=== PATIENT | female | born 1990 ===

== ENCOUNTER 2021-02-17 14:08 | Inpatient (IN) | payer BC ==
[2021-02-17] MEDS ORDERED: Methylergonovine 0.2 MG/1 ML Amp IM PRN (14:29)
[2021-02-17] MEDS ORDERED: Terbutaline 1 MG/ML SDV SUBCUT PRN (14:29)
[2021-02-17] MEDS ORDERED: Misoprostol 200 MCG Tab PO PRN (14:29)
[2021-02-17] MEDS ORDERED: Butorphanol 1 MG/ML SDV IVPUSH PRN (14:29)
[2021-02-17] MEDS ORDERED: Sodium Chloride 0.9% 10 ML Syringe FLUSH PRN (14:29)
[2021-02-17] MEDS ORDERED: Lidocaine 1% 50 ML MDV INJECT PRN (14:29)
[2021-02-17] MEDS ORDERED: Sodium Chloride 0.9% 10 ML SDV IV PRN (14:29)
[2021-02-17] MEDS ORDERED: Carboprost Tromethamine 250 MCG/1 ML Amp IM PRN (14:29)
[2021-02-17] MEDS ORDERED: Sodium Chloride 0.9% 2.5 ML Syringe FLUSH PRN (14:29)
[2021-02-17] MEDS ORDERED: Water For Irrigation,Sterile 1,000 ML Container IRR PRN (14:29)
[2021-02-17] MEDS ORDERED: Tranexamic Acid 1,000 MG in Sodium Chloride 0.9% 100 ML IV PRN (14:29)
[2021-02-17] MEDS ORDERED: Nalbuphine 10 MG/1 ML Vial IVPUSH PRN (14:29)
[2021-02-17] MEDS ORDERED: Ondansetron 4 MG/2 ML SDV IVPUSH PRN (14:29)
[2021-02-17] MEDS ORDERED: Oxytocin/0.9 % Sodium Chloride 30 UNIT/500 ML BAG IV SCH ×2 (14:30)
[2021-02-17] MEDS: Lactated Ringers 1,000 ML IV SCH ×3 (16:15→22:09)
[2021-02-17] MEDS ORDERED: Ropivacaine HCl/PF 200 ML ONE (21:19)
[2021-02-17] MEDS ORDERED: Bupivacaine 0.25% 30 ML SDV ONE (21:20)
[2021-02-17] MEDS ORDERED: ePHEDrine 50 MG/ML SDV IVPUSH PRN (21:41)
--- NOTE | 2021-02-17 21:44 | PCM.PREANE ---
Preanesthetic Assessment - Anesthesia/Transfusion/Family Hx Anesthesia History: Prior Anesthesia Without Reaction Family History of Anesthesia Reaction: No - Review of Systems General: No Symptoms Pulmonary: No Symptoms Cardiovascular: No Symptoms Gastrointestinal: No Symptoms Neurological: No Symptoms Other: Reports: None - Physical Assessment Height: 5 ft 3.25 in Weight: 203 lb 12.8 oz ASA Class: 2 Mental Status: Alert & Oriented x3 Airway Class: Mallampati = 3 Dentition: Reports: Normal Dentition ROM/Head Extension: Full Lungs: Clear to Auscultation, Normal Respiratory Effort Cardiovascular: Regular Rate, Regular Rhythm - Lab Values: Laboratory Last Values WBC 6.81 K/uL (4.0-11.0) 02/17/21 14:55 RBC 3.91 M/uL (4.30-5.90) L 02/17/21 14:55 Hgb 11.0 g/dL (12.0-16.0) L 02/17/21 14:55 Hct 31.7 % (36.0-46.0) L 02/17/21 14:55 MCV 81.1 fL (80.0-98.0) 02/17/21 14:55 MCH 28.1 pg (27.0-32.0) 02/17/21 14:55 MCHC 34.7 g/dL (31.0-37.0) 02/17/21 14:55 RDW Std Deviation 41.2 fl (28.0-62.0) 02/17/21 14:55 RDW Coeff of Jeramy 14 % (11.0-15.0) 02/17/21 14:55 Plt Count 284 K/uL (150-400) 02/17/21 14:55 MPV 10.10 fL (7.40-12.00) 02/17/21 14:55 Nucleated RBC % 0.0 /100WBC 02/17/21 14:55 Nucleated RBCs # 0 K/uL 02/17/21 14:55 Blood Type O POSITIVE 02/17/21 14:55 Antibody Screen NEGATIVE 02/17/21 14:55 - Allergies Allergies/Adverse Reactions: Allergies Allergy/AdvReac Type Severity Reaction Status Date / Time No Known Allergies Allergy Verified 02/17/21 15:20 - Blood Blood Available: Yes Product(s) Available: PRBC, FFP, Platelets - Anesthesia Plan Pre-Op Medication Ordered: None - Acknowledgements Anesthesia Type Planned: Epidural Pt an Appropriate Candidate for the Planned Anesthesia: Yes Alternatives and Risks of Anesthesia Discussed w Pt/Guardian: Yes Pt/Guardian Understands and Agrees with Anesthesia Plan: Yes PreAnesthesia Questionnaire - Past Health History Medical/Surgical History: Denies Medical/Surgical History PARTS CLASSIFIER History: Reports: Musculoskeletal History: Reports: Fracture Other Musculoskeletal History: tailbone Psychiatric History: Reports: Anxiety, Depression - Infectious Disease History Infectious Disease History: Reports: Chicken Pox - Past Surgical History Musculoskeletal Surgical History: Reports: None - HOME MEDS Home Medications: Home Meds Escitalopram Oxalate 20 mg PO DAILY 02/17/21 [History] - CURRENT (IN HOUSE) MEDS Current Meds: Current Medications Butorphanol Tartrate (Butorphanol 1 Mg/Ml Sdv) 1 mg IVPUSH Q1H PRN PRN Reason: Pain (severe 7-10) Last Admin: 02/17/21 18:12 Dose: 1 mg Documented by: Carboprost Tromethamine (Carboprost Tromethamine 250 Mcg/1 Ml Amp) 250 mcg IM ASDIRECTED PRN PRN Reason: Post Hemorrhage Oxytocin/Sodium Chloride (Oxytocin 30 Unit In Ns 0.9% 500 Ml Premix) 30 unit in 500 mls @ 999 mls/hr IV TITRATE SHARRON Tranexamic Acid 1,000 mg/ (Sodium Chloride) 110 mls @ 660 mls/hr IV ONETIME PRN PRN Reason: Bleeding Oxytocin/Sodium Chloride (Oxytocin 30 Unit In Ns 0.9% 500 Ml Premix) 30 unit in 500 mls @ 2 mls/hr IV TITRATE SHARRON; Protocol Last Titration: 02/17/21 21:22 Dose: 6 munits/min, 6 mls/hr Documented by: Lactated Ringer's (Ringers, Lactated) 1,000 mls @ 150 mls/hr IV ASDIRECTED SHARRON Last Admin: 02/17/21 19:11 Dose: 150 mls/hr Documented by: Lidocaine HCl (Lidocaine 1% 50 Ml Mdv) 50 ml INJECT ONETIME PRN PRN Reason: Laceration repair Methylergonovine Maleate (Methylergonovine 0.2 Mg/1 Ml Amp) 0.2 mg IM ASDIRECTED PRN PRN Reason: Post Hemorrhage Misoprostol (Misoprostol 200 Mcg Tab) 200 mcg PO ONETIME PRN PRN Reason: Post Hemorrhage Nalbuphine HCl (Nalbuphine 10 Mg/1 Ml Vial) 10 mg IVPUSH Q1H PRN PRN Reason: Pain (severe 7-10) Ondansetron HCl (Ondansetron 4 Mg/2 Ml Sdv) 4 mg IVPUSH Q4H PRN PRN Reason: Nausea/Vomiting Sodium Chloride (Sodium Chloride 0.9% 10 Ml Syringe) 10 ml FLUSH ASDIRECTED PRN PRN Reason: Keep Vein Open Sodium Chloride (Sodium Chloride 0.9% 2.5 Ml Syringe) 2.5 ml FLUSH ASDIRECTED PRN PRN Reason: Keep Vein Open Sodium Chloride (Sodium Chloride 0.9% 10 Ml Sdv) 10 ml IV ASDIRECTED PRN PRN Reason: IV Use Sterile Water (Water For Irrigation,Sterile 1,000 Ml Container) 1,000 ml IRR ASDIRECTED PRN PRN Reason: delivery Terbutaline Sulfate (Terbutaline 1 Mg/Ml Sdv) 0.25 mg SUBCUT ASDIRECTED PRN PRN Reason: Tacysystole Discontinued Medications Bupivacaine HCl (Bupivacaine 0.25% 30 Ml Sdv) Confirm Administered Dose 30 ml .ROUTE .[employer]-MED ONE Stop: 02/17/21 21:21 Ropivacaine (Naropin 0.2%) Confirm Administered Dose 200 mls @ as directed .ROUTE .[employer]-MED ONE Stop: 02/17/21 21:20 - Pre-Procedure Checklist Attending Provider Aware: Yes Chart Reviewed: Yes Consent Signed: Yes Labs Reviewed: Yes VS/FHR Reviewed: Yes Patient Identification Confirmation Method: Reports: Verbal Patient Pt an Appropriate Candidate for the Planned Anesthesia: Yes Alternatives and Risks of Anesthesia Discussed w Pt/Guardian: Yes - Procedure Procedure Start Date: 02/17/21 Procedure Start Time: 21:[address]: Reports: Blood Pressure, Heart Rate, SPO2 Functional IV: Yes Safety Measures: Reports: Patient Identified, Procedure Verified, Site Verified, Procedure Time Out Patient Position: Reports: Sitting Prep: Reports: Betadine x3, Sterile Drape Local Anesthetic: Reports: Intradermal Wheal w Lidocaine 1% Regional Placement Level: Reports: L3-4 Needle: Reports: 17 g Touhy Approach: Reports: Midline Technique: Reports: KARLA Plastic Syringe Parasthesia: Reports: None Fluid Obtained: Reports: None Test Dose Time: 21:29 Test Dose Medication: Reports: Lidocaine 1.5% w Epinephrine 1:200,000 Test Dose Response: Reports: Negative Loading Dose Time: 21:28 Loading Dose Medication: bupivicaine 0.25% 10cc Loading Dose Patient Position: sitting Continuous Infusion Start Time: 21:30 Continuous Infusion Medication: ropivicaine 0.2% Continuous Infusion Rate: 16 Continuous Infusion PCS Bolus Option: 4 Continuous Infusion Lockout Dose (cc/hr): 32 Patient Position Post Placement: Reports: Supline/CHEO VS and FHR Monitored in Unit Post Placement: Yes Procedure End Date: 02/17/21 Procedure End Time: 22:24
--- NOTE | 2021-02-17 21:44 | PCM.POSTAN ---
POST ANESTHESIA ASSESSMENT - MENTAL STATUS Mental Status: Alert, Oriented - RESPIRATORY Respiratory Status: Respiratory Rate WNL, Airway Patent, O2 Saturation Stable - CARDIOVASCULAR CV Status: Pulse Rate WNL, Blood Pressure Stable - GASTROINTESTINAL GI Status: No Symptoms - POST OP HYDRATION Hydration Status: Adequate & Stable
[2021-02-18] MEDS ORDERED: oxyCODONE 5 MG Tab PO PRN (00:58)
[2021-02-18] MEDS ORDERED: Ibuprofen 400 MG Tab PO PRN (00:58)
[2021-02-18] MEDS ORDERED: Benzocaine/Menthol 20%-0.5% Spray 78 GM Cannister TOP PRN (00:58)
[2021-02-18] MEDS ORDERED: Lanolin 100% Cream 7 GM Tube TOP PRN (00:58)
[2021-02-18] MEDS ORDERED: Witch Hazel Medicated Pads 40/Jar TOP PRN (00:58)
[2021-02-18] MEDS ORDERED: Acetaminophen 500 MG Tab PO PRN (00:58)
[2021-02-18] MEDS ORDERED: Bisacodyl 10 MG Supp RECTAL PRN (00:58)
--- NOTE | 2021-02-18 01:14 | PCM.DEL ---
L & D Note - General Info Date of Service: 02/18/21 Mother's Due Date: 02/22/21 - Delivery Note Labor: Augmented by Oxytocin Cervical Ripening Method: Oxytocin Delivery Outcome: Livebirth Delivery Method: Spontaneous Vaginal Delivery-Single Presentation: Left Occiput Anterior (ARNOLDO) Nuchal Cord: None Anesthesia Type: Epidural Episiotomy Type: None Laceration: None Placenta: Spontaneous Cord: 3 Vessels Estimated Blood Loss: 300 Resuscitation Needed: No Score 1 min: 7 Score 5 min: 9 Delivery Comments (Free Text/Narrative):: Live female delivered at 1157pm , 7/9 weight 3020g - General Info Date of Service: 02/18/21 - Patient Data Weight - Most Recent: 92.442 kg I&O - Last 24 Hours: Intake & Output 02/17/21 02/17/21 02/18/21 14:59 22:59 06:59 Output Total 125 Balance -125 Lab Results Last 24 Hours: Laboratory Results - last 24 hr 02/17/21 02/17/21 Range/Units 14:55 14:55 WBC 6.81 (4.0-11.0) K/uL RBC 3.91 L (4.30-5.90) M/uL Hgb 11.0 L (12.0-16.0) g/dL Hct 31.7 L (36.0-46.0) % MCV 81.1 (80.0-98.0) fL MCH 28.1 (27.0-32.0) pg MCHC 34.7 (31.0-37.0) g/dL RDW Std Deviation 41.2 (28.0-62.0) fl RDW Coeff of Jeramy 14 (11.0-15.0) % Plt Count 284 (150-400) K/uL MPV 10.10 (7.40-12.00) fL Nucleated RBC % 0.0 /100WBC Nucleated RBCs # 0 K/uL Blood Type O POSITIVE Antibody Screen NEGATIVE Med Orders - Current: Current Medications Acetaminophen (Acetaminophen 500 Mg Tab) 500 mg PO Q4H PRN PRN Reason: Pain (mild 1-3) Acetaminophen (Acetaminophen 500 Mg Tab) 1,000 mg PO Q4H PRN PRN Reason: Pain (mild 1-3) Benzocaine/Menthol (Benzocaine/Menthol 20%-0.5% Scheller 78 Gm Cannister) 78 gm TOP ASDIRECTED PRN PRN Reason: Perineal Comfort Measure Bisacodyl (Bisacodyl 10 Mg Supp) 10 mg RECTAL ONETIME PRN PRN Reason: Constipation Butorphanol Tartrate (Butorphanol 1 Mg/Ml Sdv) 1 mg IVPUSH Q1H PRN PRN Reason: Pain (severe 7-10) Last Admin: 02/17/21 18:12 Dose: 1 mg Documented by: Carboprost Tromethamine (Carboprost Tromethamine 250 Mcg/1 Ml Amp) 250 mcg IM ASDIRECTED PRN PRN Reason: Post Hemorrhage Docusate Sodium (Docusate Sodium 100 Mg Cap) 100 mg PO Q12H PRN PRN Reason: Constipation Emollient Ointment (Lanolin 100% Cream 7 Gm Tube) 0 gm TOP ASDIRECTED PRN PRN Reason: Sore Nipples Ephedrine Sulfate (Ephedrine 50 Mg/Ml Sdv) 10 mg IVPUSH Q5M PRN PRN Reason: Hypotension Escitalopram Oxalate (Escitalopram 10 Mg Tab) 20 mg PO DAILY SHARRON Oxytocin/Sodium Chloride (Oxytocin 30 Unit In Ns 0.9% 500 Ml Premix) 30 unit in 500 mls @ 999 mls/hr IV TITRATE SHARRON Tranexamic Acid 1,000 mg/ (Sodium Chloride) 110 mls @ 660 mls/hr IV ONETIME PRN PRN Reason: Bleeding Oxytocin/Sodium Chloride (Oxytocin 30 Unit In Ns 0.9% 500 Ml Premix) 30 unit in 500 mls @ 2 mls/hr IV TITRATE SHARRON; Protocol Last Titration: 02/17/21 23:58 Dose: 500 munits/min, 500 mls/hr Documented by: Lactated Ringer's (Ringers, Lactated) 1,000 mls @ 150 mls/hr IV ASDIRECTED SHARRON Last Admin: 02/17/21 22:09 Dose: 150 mls/hr Documented by: Ibuprofen (Ibuprofen 400 Mg Tab) 400 mg PO Q4H PRN PRN Reason: Pain (mild 1-3) Ibuprofen (Ibuprofen 800 Mg Tab) 800 mg PO Q6H PRN PRN Reason: Cramping Lidocaine HCl (Lidocaine 1% 50 Ml Mdv) 50 ml INJECT ONETIME PRN PRN Reason: Laceration repair Methylergonovine Maleate (Methylergonovine 0.2 Mg/1 Ml Amp) 0.2 mg IM ASDIRECTED PRN PRN Reason: Post Hemorrhage Misoprostol (Misoprostol 200 Mcg Tab) 200 mcg PO ONETIME PRN PRN Reason: Post Hemorrhage Nalbuphine HCl (Nalbuphine 10 Mg/1 Ml Vial) 10 mg IVPUSH Q1H PRN PRN Reason: Pain (severe 7-10) Ondansetron HCl (Ondansetron 4 Mg/2 Ml Sdv) 4 mg IVPUSH Q4H PRN PRN Reason: Nausea/Vomiting Last Admin: 02/17/21 22:04 Dose: 4 mg Documented by: Oxycodone HCl (Oxycodone 5 Mg Tab) 5 mg PO Q2H PRN PRN Reason: Pain (severe 7-10) Sodium Chloride (Sodium Chloride 0.9% 10 Ml Syringe) 10 ml FLUSH ASDIRECTED PRN PRN Reason: Keep Vein Open Sodium Chloride (Sodium Chloride 0.9% 2.5 Ml Syringe) 2.5 ml FLUSH ASDIRECTED PRN PRN Reason: Keep Vein Open Sodium Chloride (Sodium Chloride 0.9% 10 Ml Sdv) 10 ml IV ASDIRECTED PRN PRN Reason: IV Use Sterile Water (Water For Irrigation,Sterile 1,000 Ml Container) 1,000 ml IRR ASDIRECTED PRN PRN Reason: delivery Witch Dennise (Witch Dennise Medicated Pads 40/Jar) 1 pad TOP ASDIRECTED PRN PRN Reason: comfort care Discontinued Medications Bupivacaine HCl (Bupivacaine 0.25% 30 Ml Sdv) Confirm Administered Dose 30 ml .ROUTE .STK-MED ONE Stop: 02/17/21 21:21 Ropivacaine (Naropin 0.2%) Confirm Administered Dose 200 mls @ as directed .ROUTE .STK-MED ONE Stop: 02/17/21 21:20 Terbutaline Sulfate (Terbutaline 1 Mg/Ml Sdv) 0.25 mg SUBCUT ASDIRECTED PRN PRN Reason: Tacysystole - Exam Urinary Catheter Total Time: 0Days 2Hours - Problem List & Annotations (1) Vaginal delivery SNOMED Code(s): 353221754 Code(s): O80 - ENCOUNTER FOR FULL-TERM UNCOMPLICATED DELIVERY Status: Acute Current Visit: Yes - Problem List Review Problem List Initiated/Reviewed/Updated: Yes - My Orders Last 24 Hours: My Active Orders 02/18/21 00:58 BLOOD GAS ARTERIAL UMBILICAL [BG] Stat BLOOD GAS VENOUS UMBILICAL [BG] Stat Acetaminophen [Tylenol Extra Strength] 1,000 mg PO Q4H PRN Acetaminophen [Tylenol Extra Strength] 500 mg PO Q4H PRN Benzocaine/Menthol [Dermoplast Pain Relief 20%-0.5% Scheller] 78 gm TOP ASDIRECTED PRN Docusate Sodium [Colace] 100 mg PO Q12H PRN Ibuprofen [Motrin] 400 mg PO Q4H PRN Ibuprofen [Motrin] 800 mg PO Q6H PRN Lanolin [Lansinoh HPA] See Dose Instructions TOP ASDIRECTED PRN bisacodyL [Dulcolax] 10 mg RECTAL ONETIME PRN oxyCODONE 5 mg PO Q2H PRN witch Dennise [Tucks] 1 pad TOP ASDIRECTED PRN Resuscitation Status Routine 02/18/21 00:59 Patient Status [ADT] Routine May Shower [RC] ASDIRECTED Up ad Shawna [RC] ASDIRECTED Vital Signs [RC] PER UNIT ROUTINE Assess Lochia [WOMSER] Per Unit Routine Assess Uterine Involution [WOMSER] Per Unit Routine Peripheral IV Discontinue [OM.PC] Routine 02/18/21 09:00 Escitalopram [Lexapro] 20 mg PO DAILY 02/19/21 05:11 HEMOGLOBIN/HEMATOCRIT,HH [HEME] Timed - Assessment Assessment:: 30yo P2012 s/p PPD 1 , RH positive , Rubella Immune - Plan Plan:: Routine care
[2021-02-18] MEDS: Ibuprofen 800 MG Tab PO PRN ×3 (03:28→15:55)
--- NOTE | 2021-02-18 07:30 | OR ---
SURGEON: CECELIA RAMIRES DATE OF PROCEDURE: 02/17/2021 PREOPERATIVE DIAGNOSIS: A 30-year-old, G3, P 1-0-1-1 at 39 weeks 2 days, came in for induction of labor for elective reasons. POSTOPERATIVE DIAGNOSES: A 30-year-old, G3, P 1-0-1-1 at 39 weeks 2 days, came in for induction of labor for elective reasons. PROCEDURE: Normal spontaneous vaginal delivery. ESTIMATED BLOOD LOSS: 300. IV FLUIDS: Pitocin running. ANESTHESIA: Epidural. NOTES AND FINDINGS: A live female delivered at 11:57 p.m., scores 7 and 9. Weight 3220 g. BRIEF HISTORY ABOUT PATIENT: She is a 30-year-old low risk patient, came in for induction. She was 3 cm dilated. Pitocin was started after which she was AROM'ed. IUPC was placed. She had a normal labor course. she became fully dilated. With the patient being fully dilated, she was encouraged to push. DESCRIPTION OF PROCEDURE: With good pushing effort, she delivered the head followed subsequently by the anterior and posterior shoulder. The body of the was delivered. was placed on maternal abdomen. Delayed cord clamping was observed after which cord was clamped and cut. The cord blood gases were obtained. Placenta was delivered via controlled cord traction. Perineum was inspected, noted to have bilateral labial laceration that was repaired with 3-0 Vicryl. The bimanual massage was done. Uterus was noted to be firm. Lochia was known to be normal. All instrument and pad counts were correct x2. GREGORY / DHRUV /[id number]
[2021-02-18] MEDS: Acetaminophen 500 MG Tab PO PRN (08:22)
[2021-02-18] MEDS: Escitalopram 10 MG Tab PO SCH (09:38)
--- NOTE | 2021-02-18 12:10 | PCM.PNPP ---
- General Info Date of Service: 02/18/21 Subjective Update: patient doing well , denies any complains , bottle feeding , normal lochia Functional Status: Reports: Pain Controlled, Tolerating Diet, Ambulating, Urinating - Review of Systems General: Reports: No Symptoms HEENT: Reports: No Symptoms Pulmonary: Reports: No Symptoms Cardiovascular: Reports: No Symptoms Gastrointestinal: Reports: No Symptoms Genitourinary: Reports: No Symptoms Musculoskeletal: Reports: No Symptoms Skin: Reports: No Symptoms Neurological: Reports: No Symptoms Psychiatric: Reports: No Symptoms - General Info Date of Service: 02/18/21 - Patient Data Vital Signs - Most Recent: Last Vital Signs Temp 36.7 C 02/18/21 08:35 Pulse 61 02/18/21 08:35 Resp 17 02/18/21 08:35 BP 155/86 H 02/18/21 08:35 Pulse Ox 97 02/18/21 08:35 Weight - Most Recent: 92.442 kg I&O - Last 24 Hours: Intake & Output 02/17/21 02/18/21 02/18/21 22:59 06:59 14:59 Output Total 125 Balance -125 Lab Results - Last 24 Hours: Laboratory Results - last 24 hr 02/17/21 02/17/21 02/17/21 Range/Units 00:00 14:55 14:55 WBC 6.81 (4.0-11.0) K/uL RBC 3.91 L (4.30-5.90) M/uL Hgb 11.0 L (12.0-16.0) g/dL Hct 31.7 L (36.0-46.0) % MCV 81.1 (80.0-98.0) fL MCH 28.1 (27.0-32.0) pg MCHC 34.7 (31.0-37.0) g/dL RDW Std Deviation 41.2 (28.0-62.0) fl RDW Coeff of Jeramy 14 (11.0-15.0) % Plt Count 284 (150-400) K/uL MPV 10.10 (7.40-12.00) fL Nucleated RBC % 0.0 /100WBC Nucleated RBCs # 0 K/uL Cord ABG pH 7.216 (7.18-7.38) Cord ABG Base Excess -4 (-10--2) Cord VBG pH 7.277 (7.25-7.45) Cord VBG Base Excess -4 (-10--2) Blood Type O POSITIVE Antibody Screen NEGATIVE Med Orders - Current: Current Medications Acetaminophen (Acetaminophen 500 Mg Tab) 500 mg PO Q4H PRN PRN Reason: Pain (mild 1-3) Acetaminophen (Acetaminophen 500 Mg Tab) 1,000 mg PO Q4H PRN PRN Reason: Pain (mild 1-3) Last Admin: 02/18/21 08:22 Dose: 1,000 mg Documented by: Benzocaine/Menthol (Benzocaine/Menthol 20%-0.5% Warren 78 Gm Cannister) 78 gm TOP ASDIRECTED PRN PRN Reason: Perineal Comfort Measure Last Admin: 02/18/21 05:02 Dose: 1 can Documented by: Bisacodyl (Bisacodyl 10 Mg Supp) 10 mg RECTAL ONETIME PRN PRN Reason: Constipation Butorphanol Tartrate (Butorphanol 1 Mg/Ml Sdv) 1 mg IVPUSH Q1H PRN PRN Reason: Pain (severe 7-10) Last Admin: 02/17/21 18:12 Dose: 1 mg Documented by: Carboprost Tromethamine (Carboprost Tromethamine 250 Mcg/1 Ml Amp) 250 mcg IM ASDIRECTED PRN PRN Reason: Post Hemorrhage Docusate Sodium (Docusate Sodium 100 Mg Cap) 100 mg PO Q12H PRN PRN Reason: Constipation Emollient Ointment (Lanolin 100% Cream 7 Gm Tube) 0 gm TOP ASDIRECTED PRN PRN Reason: Sore Nipples Ephedrine Sulfate (Ephedrine 50 Mg/Ml Sdv) 10 mg IVPUSH Q5M PRN PRN Reason: Hypotension Escitalopram Oxalate (Escitalopram 10 Mg Tab) 20 mg PO DAILY SHARRON Last Admin: 02/18/21 09:38 Dose: 20 mg Documented by: Oxytocin/Sodium Chloride (Oxytocin 30 Unit In Ns 0.9% 500 Ml Premix) 30 unit in 500 mls @ 999 mls/hr IV TITRATE SHARRON Tranexamic Acid 1,000 mg/ (Sodium Chloride) 110 mls @ 660 mls/hr IV ONETIME PRN PRN Reason: Bleeding Oxytocin/Sodium Chloride (Oxytocin 30 Unit In Ns 0.9% 500 Ml Premix) 30 unit in 500 mls @ 2 mls/hr IV TITRATE SHARRON; Protocol Last Titration: 02/17/21 23:58 Dose: 500 munits/min, 500 mls/hr Documented by: Lactated Ringer's (Ringers, Lactated) 1,000 mls @ 150 mls/hr IV ASDIRECTED SHARRON Last Admin: 02/17/21 22:09 Dose: 150 mls/hr Documented by: Ibuprofen (Ibuprofen 400 Mg Tab) 400 mg PO Q4H PRN PRN Reason: Pain (mild 1-3) Ibuprofen (Ibuprofen 800 Mg Tab) 800 mg PO Q6H PRN PRN Reason: Cramping Last Admin: 02/18/21 09:38 Dose: 800 mg Documented by: Lidocaine HCl (Lidocaine 1% 50 Ml Mdv) 50 ml INJECT ONETIME PRN PRN Reason: Laceration repair Methylergonovine Maleate (Methylergonovine 0.2 Mg/1 Ml Amp) 0.2 mg IM ASDIRECTED PRN PRN Reason: Post Hemorrhage Misoprostol (Misoprostol 200 Mcg Tab) 200 mcg PO ONETIME PRN PRN Reason: Post Hemorrhage Nalbuphine HCl (Nalbuphine 10 Mg/1 Ml Vial) 10 mg IVPUSH Q1H PRN PRN Reason: Pain (severe 7-10) Ondansetron HCl (Ondansetron 4 Mg/2 Ml Sdv) 4 mg IVPUSH Q4H PRN PRN Reason: Nausea/Vomiting Last Admin: 02/17/21 22:04 Dose: 4 mg Documented by: Oxycodone HCl (Oxycodone 5 Mg Tab) 5 mg PO Q2H PRN PRN Reason: Pain (severe 7-10) Sodium Chloride (Sodium Chloride 0.9% 10 Ml Syringe) 10 ml FLUSH ASDIRECTED PRN PRN Reason: Keep Vein Open Sodium Chloride (Sodium Chloride 0.9% 2.5 Ml Syringe) 2.5 ml FLUSH ASDIRECTED PRN PRN Reason: Keep Vein Open Sodium Chloride (Sodium Chloride 0.9% 10 Ml Sdv) 10 ml IV ASDIRECTED PRN PRN Reason: IV Use Sterile Water (Water For Irrigation,Sterile 1,000 Ml Container) 1,000 ml IRR ASDIRECTED PRN PRN Reason: delivery Witch Dennise (Witch Dennise Medicated Pads 40/Jar) 1 pad TOP ASDIRECTED PRN PRN Reason: comfort care Last Admin: 02/18/21 05:03 Dose: 1 tub Documented by: Discontinued Medications Bupivacaine HCl (Bupivacaine 0.25% 30 Ml Sdv) Confirm Administered Dose 30 ml .ROUTE .STK-MED ONE Stop: 02/17/21 21:21 Last Admin: 02/18/21 03:37 Dose: Not Given Documented by: Ropivacaine (Naropin 0.2%) Confirm Administered Dose 200 mls @ as directed .ROUTE .STK-MED ONE Stop: 02/17/21 21:20 Last Admin: 02/18/21 03:37 Dose: Not Given Documented by: Terbutaline Sulfate (Terbutaline 1 Mg/Ml Sdv) 0.25 mg SUBCUT ASDIRECTED PRN PRN Reason: Tacysystole - Interaction Support Person: - Recovery Exam Fundal Tone: Firm Fundal Placement: Midline Lochia Amount: Scant Lochia Color: Rubra/Red Perineum Description: Intact, Minimal Bruising/Swelling Bladder Status: Voiding Urinary Elimination: Voided - Exam General: Alert HEENT: Pupils Equal Neck: Supple Lungs: Clear to Auscultation, Normal Respiratory Effort Cardiovascular: Regular Rate, Regular Rhythm GI/Abdominal Exam: Normal Bowel Sounds Extremities: Normal Inspection - Problem List & Annotations (1) Vaginal delivery SNOMED Code(s): 656883042 Code(s): O80 - ENCOUNTER FOR FULL-TERM UNCOMPLICATED DELIVERY Status: Acute Current Visit: Yes - Problem List Review Problem List Initiated/Reviewed/Updated: Yes - My Orders Last 24 Hours: My Active Orders 02/18/21 00:58 Acetaminophen [Tylenol Extra Strength] 1,000 mg PO Q4H PRN Acetaminophen [Tylenol Extra Strength] 500 mg PO Q4H PRN Benzocaine/Menthol [Dermoplast Pain Relief 20%-0.5% Warren] 78 gm TOP ASDIRECTED PRN Docusate Sodium [Colace] 100 mg PO Q12H PRN Ibuprofen [Motrin] 400 mg PO Q4H PRN Ibuprofen [Motrin] 800 mg PO Q6H PRN Lanolin [Lansinoh HPA] See Dose Instructions TOP ASDIRECTED PRN bisacodyL [Dulcolax] 10 mg RECTAL ONETIME PRN oxyCODONE 5 mg PO Q2H PRN witch Dennise [Tucks] 1 pad TOP ASDIRECTED PRN Resuscitation Status Routine 02/18/21 00:59 Patient Status [ADT] Routine May Shower [RC] ASDIRECTED Up ad Shawna [RC] ASDIRECTED Vital Signs [RC] PER UNIT ROUTINE Assess Lochia [WOMSER] Per Unit Routine Assess Uterine Involution [WOMSER] Per Unit Routine Peripheral IV Discontinue [OM.PC] Routine 02/18/21 Breakfast Regular Diet [DIET] 02/18/21 09:00 Escitalopram [Lexapro] 20 mg PO DAILY 02/19/21 05:11 HEMOGLOBIN/HEMATOCRIT,HH [HEME] Timed - Assessment Assessment:: 30yo P2012 s/p PPD 1 , RH positive , Rubella Immune - Plan Plan:: Routine care Pain control as needed vitamins Encourage ambulation Anticipate discharge tomorrow
[2021-02-18 21:59] LABS: BLOOD UREA NITROGEN,BUN 4 mg/dL (7.0-18.0); CARBON DIOXIDE,CO2 24.1 mmol/L (21.0-32.0); CHLORIDE,CL 106 mmol/L (98-107); GLUCOSE RANDOM 115 mg/dL (74-106); SODIUM,NA 142 mmol/L (136-145)
[2021-02-18 22:13] LABS: POTASSIUM,K 2.1 mmol/L (3.5-5.1)
[2021-02-18] MEDS ORDERED: Dextrose 5%-Lact Ringers w/KCl 1,000 ML IV SCH (22:30)
[2021-02-19] MEDS: Ibuprofen 800 MG Tab PO PRN ×3 (00:03→15:40)
--- NOTE | 2021-02-19 07:04 | PCM.SN.2 ---
- Free Text/Narrative Note: Patient noted to have BPs 130s - 150s/70s - 90s . She denies headache ,RUQ pain , BV PIH labs done , PCR : 0.4 , Platelet , Cr , AST and ALT - wnl K - 2.2 A/p 30yo s/p PPD2 , mild preclampsia Plan: Monitor BPs Potassium IV given Will supplement with oral potassium Time Documentation
[2021-02-19] MEDS: Acetaminophen 500 MG Tab PO PRN (07:53)
[2021-02-19] MEDS: Docusate Sodium 100 MG Cap PO PRN (07:54)
[2021-02-19] MEDS: Potassium Chloride 20 MEQ Tab.ER PO SCH ×2 (09:01→21:25)
[2021-02-19] MEDS: Escitalopram 10 MG Tab PO SCH (09:01)
[2021-02-19] MEDS: Labetalol 100 MG Tab PO SCH ×2 (09:01→21:23)
--- NOTE | 2021-02-19 09:08 | PCM.PNPP ---
- General Info Date of Service: 02/19/21 Functional Status: Reports: Pain Controlled, Tolerating Diet, Ambulating, Urinating - Review of Systems General: Reports: Fatigue. Denies: Fever, Weakness Pulmonary: Denies: Shortness of Breath Cardiovascular: Denies: Chest Pain, Palpitations, Lightheadedness Gastrointestinal: Denies: Abdominal Pain Genitourinary: Reports: No Symptoms Musculoskeletal: Reports: Back Pain (near tail bone is sore) Skin: Reports: No Symptoms Neurological: Reports: No Symptoms Psychiatric: Reports: No Symptoms - General Info Date of Service: 02/19/21 - Patient Data Vital Signs - Most Recent: Last Vital Signs Temp 35.8 C L 02/19/21 04:30 Pulse 61 02/19/21 09:01 Resp 17 02/19/21 04:30 BP 161/90 H 02/19/21 09:01 Pulse Ox 96 02/19/21 04:30 Weight - Most Recent: 92.442 kg Lab Results - Last 24 Hours: Laboratory Results - last 24 hr 02/18/21 02/18/21 02/19/21 Range/Units 21:32 21:32 04:00 WBC 10.49 (4.0-11.0) K/uL RBC 3.80 L (4.30-5.90) M/uL Hgb 10.5 L (12.0-16.0) g/dL Hct 31.1 L (36.0-46.0) % MCV 81.8 (80.0-98.0) fL MCH 27.6 (27.0-32.0) pg MCHC 33.8 (31.0-37.0) g/dL RDW Std Deviation 41.8 (28.0-62.0) fl RDW Coeff of Jeramy 14 (11.0-15.0) % Plt Count 266 (150-400) K/uL MPV 9.70 (7.40-12.00) fL Nucleated RBC % 0.0 /100WBC Nucleated RBCs # 0 K/uL Sodium 142 (136-145) mmol/L Potassium 2.1 L* (3.5-5.1) mmol/L Chloride 106 (98-107) mmol/L Carbon Dioxide 24.1 (21.0-32.0) mmol/L BUN 4 L (7.0-18.0) mg/dL Creatinine 0.6 (0.6-1.0) mg/dL Est Cr Clr Drug Dosing 116.75 mL/min Estimated GFR (MDRD) > 60.0 ml/min Glucose 115 H (74-106) mg/dL Calcium 7.9 L (8.5-10.1) mg/dL Total Bilirubin 0.8 (0.2-1.0) mg/dL AST 27 (15-37) IU/L ALT 16 (14-63) IU/L Alkaline Phosphatase 114 (46-116) U/L Total Protein 5.5 L (6.4-8.2) g/dL Albumin 2.0 L (3.4-5.0) g/dL Globulin 3.5 (2.6-4.0) g/dL Albumin/Globulin Ratio 0.6 L (0.9-1.6) Ur Random Creatinine 107.7 mg/dL U Random Total Protein 47.6 H (<11.9) mg/dL Protein/Creatinin Ratio 0.4 02/19/21 02/19/21 Range/Units 05:43 08:07 WBC (4.0-11.0) K/uL RBC (4.30-5.90) M/uL Hgb 9.8 L (12.0-16.0) g/dL Hct 29.4 L (36.0-46.0) % MCV (80.0-98.0) fL MCH (27.0-32.0) pg MCHC (31.0-37.0) g/dL RDW Std Deviation (28.0-62.0) fl RDW Coeff of Jeramy (11.0-15.0) % Plt Count (150-400) K/uL MPV (7.40-12.00) fL Nucleated RBC % /100WBC Nucleated RBCs # K/uL Sodium (136-145) mmol/L Potassium 2.4 L* (3.5-5.1) mmol/L Chloride (98-107) mmol/L Carbon Dioxide (21.0-32.0) mmol/L BUN (7.0-18.0) mg/dL Creatinine (0.6-1.0) mg/dL Est Cr Clr Drug Dosing mL/min Estimated GFR (MDRD) ml/min Glucose (74-106) mg/dL Calcium (8.5-10.1) mg/dL Total Bilirubin (0.2-1.0) mg/dL AST (15-37) IU/L ALT (14-63) IU/L Alkaline Phosphatase (46-116) U/L Total Protein (6.4-8.2) g/dL Albumin (3.4-5.0) g/dL Globulin (2.6-4.0) g/dL Albumin/Globulin Ratio (0.9-1.6) Ur Random Creatinine mg/dL U Random Total Protein (<11.9) mg/dL Protein/Creatinin Ratio Med Orders - Current: Current Medications Acetaminophen (Acetaminophen 500 Mg Tab) 500 mg PO Q4H PRN PRN Reason: Pain (mild 1-3) Acetaminophen (Acetaminophen 500 Mg Tab) 1,000 mg PO Q4H PRN PRN Reason: Pain (mild 1-3) Last Admin: 02/19/21 07:53 Dose: 1,000 mg Documented by: Benzocaine/Menthol (Benzocaine/Menthol 20%-0.5% [place] 78 Gm Cannister) 78 gm TOP ASDIRECTED PRN PRN Reason: Perineal Comfort Measure Last Admin: 02/18/21 05:02 Dose: 1 can Documented by: Bisacodyl (Bisacodyl 10 Mg Supp) 10 mg RECTAL ONETIME PRN PRN Reason: Constipation Butorphanol Tartrate (Butorphanol 1 Mg/Ml Sdv) 1 mg IVPUSH Q1H PRN PRN Reason: Pain (severe 7-10) Last Admin: 02/17/21 18:12 Dose: 1 mg Documented by: Carboprost Tromethamine (Carboprost Tromethamine 250 Mcg/1 Ml Amp) 250 mcg IM ASDIRECTED PRN PRN Reason: Post Hemorrhage Docusate Sodium (Docusate Sodium 100 Mg Cap) 100 mg PO Q12H PRN PRN Reason: Constipation Last Admin: 02/19/21 07:54 Dose: 100 mg Documented by: Emollient Ointment (Lanolin 100% Cream 7 Gm Tube) 0 gm TOP ASDIRECTED PRN PRN Reason: Sore Nipples Ephedrine Sulfate (Ephedrine 50 Mg/Ml Sdv) 10 mg IVPUSH Q5M PRN PRN Reason: Hypotension Escitalopram Oxalate (Escitalopram 10 Mg Tab) 20 mg PO DAILY [facility] Last Admin: 02/19/21 09:01 Dose: 20 mg Documented by: Oxytocin/Sodium Chloride (Oxytocin 30 Unit In Ns 0.9% 500 Ml Premix) 30 unit in 500 mls @ 999 mls/hr IV TITRATE [facility] Tranexamic Acid 1,000 mg/ (Sodium Chloride) 110 mls @ 660 mls/hr IV ONETIME PRN PRN Reason: Bleeding Oxytocin/Sodium Chloride (Oxytocin 30 Unit In Ns 0.9% 500 Ml Premix) 30 unit in 500 mls @ 2 mls/hr IV TITRATE [facility]; Protocol Last Titration: 02/17/21 23:58 Dose: 500 munits/min, 500 mls/hr Documented by: Lactated Ringer's (Ringers, Lactated) 1,000 mls @ 150 mls/hr IV ASDIRECTED [facility] Last Admin: 02/17/21 22:09 Dose: 150 mls/hr Documented by: Potassium Cl/Dextrose/Lact Ringer's (D5 Lr With 20 Meq Kcl) 1,000 mls @ 125 mls/hr IV ASDIRECTED [facility] Last Admin: 02/18/21 23:04 Dose: 125 mls/hr Documented by: Ibuprofen (Ibuprofen 400 Mg Tab) 400 mg PO Q4H PRN PRN Reason: Pain (mild 1-3) Ibuprofen (Ibuprofen 800 Mg Tab) 800 mg PO Q6H PRN PRN Reason: Cramping Last Admin: 02/19/21 07:52 Dose: 800 mg Documented by: Labetalol HCl (Labetalol 100 Mg Tab) 100 mg PO BID [facility] Last Admin: 02/19/21 09:01 Dose: 100 mg Documented by: Lidocaine HCl (Lidocaine 1% 50 Ml Mdv) 50 ml INJECT ONETIME PRN PRN Reason: Laceration repair Methylergonovine Maleate (Methylergonovine 0.2 Mg/1 Ml Amp) 0.2 mg IM ASDIRECTED PRN PRN Reason: Post Hemorrhage Misoprostol (Misoprostol 200 Mcg Tab) 200 mcg PO ONETIME PRN PRN Reason: Post Hemorrhage Nalbuphine HCl (Nalbuphine 10 Mg/1 Ml Vial) 10 mg IVPUSH Q1H PRN PRN Reason: Pain (severe 7-10) Ondansetron HCl (Ondansetron 4 Mg/2 Ml Sdv) 4 mg IVPUSH Q4H PRN PRN Reason: Nausea/Vomiting Last Admin: 02/17/21 22:04 Dose: 4 mg Documented by: Oxycodone HCl (Oxycodone 5 Mg Tab) 5 mg PO Q2H PRN PRN Reason: Pain (severe 7-10) Potassium Bicarbonate (Potassium Bicarbonate 25 Meq Tab.Eff) 25 meq PO DAILY [facility] Potassium Chloride (Potassium Chloride 20 Meq Tab.Er) 40 meq PO BID [facility] Last Admin: 02/19/21 09:01 Dose: 40 meq Documented by: Sodium Chloride (Sodium Chloride 0.9% 10 Ml Syringe) 10 ml FLUSH ASDIRECTED PRN PRN Reason: Keep Vein Open Sodium Chloride (Sodium Chloride 0.9% 2.5 Ml Syringe) 2.5 ml FLUSH ASDIRECTED PRN PRN Reason: Keep Vein Open Sodium Chloride (Sodium Chloride 0.9% 10 Ml Sdv) 10 ml IV ASDIRECTED PRN PRN Reason: IV Use Sterile Water (Water For Irrigation,Sterile 1,000 Ml Container) 1,000 ml IRR ASDIRECTED PRN PRN Reason: delivery Witch Dennise (Witch Dennise Medicated Pads 40/Jar) 1 pad TOP ASDIRECTED PRN PRN Reason: comfort care Last Admin: 02/18/21 05:03 Dose: 1 tub Documented by: Discontinued Medications Bupivacaine HCl (Bupivacaine 0.25% 30 Ml Sdv) Confirm Administered Dose 30 ml .ROUTE .STK-MED ONE Stop: 02/17/21 21:21 Last Admin: 02/18/21 03:37 Dose: Not Given Documented by: Ropivacaine (Naropin 0.2%) Confirm Administered Dose 200 mls @ as directed .ROUTE .STK-MED ONE Stop: 02/17/21 21:20 Last Admin: 02/18/21 03:37 Dose: Not Given Documented by: Terbutaline Sulfate (Terbutaline 1 Mg/Ml Sdv) 0.25 mg SUBCUT ASDIRECTED PRN PRN Reason: Tacysystole - Infant Interaction Support Person: - Recovery Exam Fundal Tone: Firm Fundal Level: 1 Fingerbreadths Below Umbilicus Fundal Placement: Midline Lochia Amount: Scant Lochia Color: Rubra/Red Perineum Description: Intact, Minimal Bruising/Swelling Episiotomy/Laceration: None Bladder Status: Voiding Urinary Elimination: Voided - Exam General: Alert, Oriented Lungs: Normal Respiratory Effort Cardiovascular: Regular Rate, Regular Rhythm GI/Abdominal Exam: Normal Bowel Sounds, Soft Extremities: Pedal Edema (trace). No: Armida's Sign Skin: Warm, Dry, Intact Neurological: No New Focal Deficit Psy/Mental Status: Alert, Normal Affect, Normal Mood - Problem List & Annotations (1) Vaginal delivery SNOMED Code(s): 151699940 Code(s): O80 - ENCOUNTER FOR FULL-TERM UNCOMPLICATED DELIVERY Status: Acute Current Visit: Yes (2) Preeclampsia SNOMED Code(s): 819949933 Code(s): O14.90 - UNSPECIFIED PRE-ECLAMPSIA, UNSPECIFIED TRIMESTER Status: Acute Current Visit: Yes - Problem List Review Problem List Initiated/Reviewed/Updated: Yes - My Orders Last 24 Hours: My Active Orders 02/19/21 09:00 Labetalol [Normodyne] 100 mg PO BID Potassium Chloride [Klor-Con M20] 40 meq PO BID - Assessment Assessment:: 30yo P2012 s/p PPD 2 , RH positive , Rubella Immune preeclampsia - Plan Plan:: Patient denies headache or visual changes, but BPs now in severe range this morning with systolic in 160s. Still hypokalemic. Will start labetalol 100 mg bid and supplement potassium and monitor. This has been her only severe range blood pressure, otherwise in 140s-150s. She agrees to plan of care. Will monitor BP with treatment.
[2021-02-20 07:53] LABS: BLOOD UREA NITROGEN,BUN 6 mg/dL (7.0-18.0); CARBON DIOXIDE,CO2 26.7 mmol/L (21.0-32.0); CHLORIDE,CL 107 mmol/L (98-107); GLUCOSE RANDOM 77 mg/dL (74-106); POTASSIUM,K 2.8 mmol/L (3.5-5.1); SODIUM,NA 144 mmol/L (136-145)
[2021-02-20] MEDS: Ibuprofen 800 MG Tab PO PRN (08:03)
[2021-02-20] MEDS: Potassium Bicarbonate 25 MEQ Tab.EFF PO SCH (08:13)
--- NOTE | 2021-02-20 08:36 | PCM.PNPP ---
- General Info Date of Service: 02/20/21 Functional Status: Reports: Pain Controlled, Tolerating Diet, Ambulating, Urinating - Review of Systems General: Reports: Fatigue. Denies: Fever, Weakness Pulmonary: Denies: Shortness of Breath Cardiovascular: Denies: Chest Pain, Palpitations, Lightheadedness Gastrointestinal: Denies: Abdominal Pain, Nausea, Vomiting Genitourinary: Denies: Flank Pain Musculoskeletal: Reports: No Symptoms Skin: Reports: No Symptoms Neurological: Reports: No Symptoms Psychiatric: Reports: No Symptoms - General Info Date of Service: 02/20/21 - Patient Data Vital Signs - Most Recent: Last Vital Signs Temp 36.2 C 02/20/21 04:00 Pulse 72 02/20/21 04:00 Resp 16 02/20/21 04:00 BP 143/81 H 02/20/21 04:00 Pulse Ox 97 02/20/21 04:00 Weight - Most Recent: 92.442 kg Lab Results - Last 24 Hours: Laboratory Results - last 24 hr 02/17/21 02/19/21 02/20/21 Range/Units 14:55 08:07 06:52 Sodium 144 (136-145) mmol/L Potassium 2.4 L* 2.8 L (3.5-5.1) mmol/L Chloride 107 (98-107) mmol/L Carbon Dioxide 26.7 (21.0-32.0) mmol/L BUN 6 L (7.0-18.0) mg/dL Creatinine 0.6 (0.6-1.0) mg/dL Est Cr Clr Drug Dosing 116.75 mL/min Estimated GFR (MDRD) > 60.0 ml/min Glucose 77 (74-106) mg/dL Calcium 7.7 L (8.5-10.1) mg/dL RPR Non-Reac (Non-Reac) Med Orders - Current: Current Medications Acetaminophen (Acetaminophen 500 Mg Tab) 500 mg PO Q4H PRN PRN Reason: Pain (mild 1-3) Acetaminophen (Acetaminophen 500 Mg Tab) 1,000 mg PO Q4H PRN PRN Reason: Pain (mild 1-3) Last Admin: 02/19/21 07:53 Dose: 1,000 mg Documented by: Benzocaine/Menthol (Benzocaine/Menthol 20%-0.5% [place] 78 Gm Cannister) 78 gm TOP ASDIRECTED PRN PRN Reason: Perineal Comfort Measure Last Admin: 02/18/21 05:02 Dose: 1 can Documented by: Bisacodyl (Bisacodyl 10 Mg Supp) 10 mg RECTAL ONETIME PRN PRN Reason: Constipation Butorphanol Tartrate (Butorphanol 1 Mg/Ml Sdv) 1 mg IVPUSH Q1H PRN PRN Reason: Pain (severe 7-10) Last Admin: 02/17/21 18:12 Dose: 1 mg Documented by: Carboprost Tromethamine (Carboprost Tromethamine 250 Mcg/1 Ml Amp) 250 mcg IM ASDIRECTED PRN PRN Reason: Post Hemorrhage Docusate Sodium (Docusate Sodium 100 Mg Cap) 100 mg PO Q12H PRN PRN Reason: Constipation Last Admin: 02/19/21 07:54 Dose: 100 mg Documented by: Emollient Ointment (Lanolin 100% Cream 7 Gm Tube) 0 gm TOP ASDIRECTED PRN PRN Reason: Sore Nipples Ephedrine Sulfate (Ephedrine 50 Mg/Ml Sdv) 10 mg IVPUSH Q5M PRN PRN Reason: Hypotension Escitalopram Oxalate (Escitalopram 10 Mg Tab) 20 mg PO DAILY [facility] Last Admin: 02/19/21 09:01 Dose: 20 mg Documented by: Oxytocin/Sodium Chloride (Oxytocin 30 Unit In Ns 0.9% 500 Ml Premix) 30 unit in 500 mls @ 999 mls/hr IV TITRATE [facility] Tranexamic Acid 1,000 mg/ (Sodium Chloride) 110 mls @ 660 mls/hr IV ONETIME PRN PRN Reason: Bleeding Oxytocin/Sodium Chloride (Oxytocin 30 Unit In Ns 0.9% 500 Ml Premix) 30 unit in 500 mls @ 2 mls/hr IV TITRATE [facility]; Protocol Last Titration: 02/17/21 23:58 Dose: 500 munits/min, 500 mls/hr Documented by: Lactated Ringer's (Ringers, Lactated) 1,000 mls @ 150 mls/hr IV ASDIRECTED [facility] Last Admin: 02/17/21 22:09 Dose: 150 mls/hr Documented by: Potassium Cl/Dextrose/Lact Ringer's (D5 Lr With 20 Meq Kcl) 1,000 mls @ 125 mls/hr IV ASDIRECTED [facility] Last Admin: 02/18/21 23:04 Dose: 125 mls/hr Documented by: Ibuprofen (Ibuprofen 400 Mg Tab) 400 mg PO Q4H PRN PRN Reason: Pain (mild 1-3) Ibuprofen (Ibuprofen 800 Mg Tab) 800 mg PO Q6H PRN PRN Reason: Cramping Last Admin: 02/20/21 08:03 Dose: 800 mg Documented by: Labetalol HCl (Labetalol 100 Mg Tab) 200 mg PO BID [facility] Lidocaine HCl (Lidocaine 1% 50 Ml Mdv) 50 ml INJECT ONETIME PRN PRN Reason: Laceration repair Methylergonovine Maleate (Methylergonovine 0.2 Mg/1 Ml Amp) 0.2 mg IM ASDIRECTED PRN PRN Reason: Post Hemorrhage Misoprostol (Misoprostol 200 Mcg Tab) 200 mcg PO ONETIME PRN PRN Reason: Post Hemorrhage Nalbuphine HCl (Nalbuphine 10 Mg/1 Ml Vial) 10 mg IVPUSH Q1H PRN PRN Reason: Pain (severe 7-10) Ondansetron HCl (Ondansetron 4 Mg/2 Ml Sdv) 4 mg IVPUSH Q4H PRN PRN Reason: Nausea/Vomiting Last Admin: 02/17/21 22:04 Dose: 4 mg Documented by: Oxycodone HCl (Oxycodone 5 Mg Tab) 5 mg PO Q2H PRN PRN Reason: Pain (severe 7-10) Potassium Chloride (Potassium Chloride 20 Meq Tab.Er) 40 meq PO BID [facility] Last Admin: 02/19/21 21:25 Dose: 40 meq Documented by: Sodium Chloride (Sodium Chloride 0.9% 10 Ml Syringe) 10 ml FLUSH ASDIRECTED PRN PRN Reason: Keep Vein Open Sodium Chloride (Sodium Chloride 0.9% 2.5 Ml Syringe) 2.5 ml FLUSH ASDIRECTED PRN PRN Reason: Keep Vein Open Sodium Chloride (Sodium Chloride 0.9% 10 Ml Sdv) 10 ml IV ASDIRECTED PRN PRN Reason: IV Use Sterile Water (Water For Irrigation,Sterile 1,000 Ml Container) 1,000 ml IRR ASDIRECTED PRN PRN Reason: delivery Witch Dennise (Witch Dennise Medicated Pads 40/Jar) 1 pad TOP ASDIRECTED PRN PRN Reason: comfort care Last Admin: 02/18/21 05:03 Dose: 1 tub Documented by: Discontinued Medications Bupivacaine HCl (Bupivacaine 0.25% 30 Ml Sdv) Confirm Administered Dose 30 ml .ROUTE .STK-MED ONE Stop: 02/17/21 21:21 Last Admin: 02/18/21 03:37 Dose: Not Given Documented by: Ropivacaine (Naropin 0.2%) Confirm Administered Dose 200 mls @ as directed .ROUTE .STK-MED ONE Stop: 02/17/21 21:20 Last Admin: 02/18/21 03:37 Dose: Not Given Documented by: Labetalol HCl (Labetalol 100 Mg Tab) 100 mg PO BID [facility] Last Admin: 02/19/21 21:23 Dose: 100 mg Documented by: Potassium Bicarbonate (Potassium Bicarbonate 25 Meq Tab.Eff) 25 meq PO DAILY [facility] Last Admin: 02/20/21 08:13 Dose: Not Given Documented by: Terbutaline Sulfate (Terbutaline 1 Mg/Ml Sdv) 0.25 mg SUBCUT ASDIRECTED PRN PRN Reason: Tacysystole - Interaction Disposition, : in Room with Family Support Person: - Recovery Exam Fundal Tone: Firm Fundal Level: At Umbilicus Fundal Placement: Midline Lochia Amount: Small Lochia Color: Rubra/Red Perineum Description: Intact, Minimal Bruising/Swelling, Other (see below) Other Perinuem Description: bilateral labial laceration repaired Episiotomy/Laceration: Approximated Bladder Status: Nonpalpable, Voiding Urinary Elimination: Voided - Exam General: Alert, Oriented Lungs: Normal Respiratory Effort Cardiovascular: Regular Rate, Regular Rhythm GI/Abdominal Exam: Normal Bowel Sounds, Soft Extremities: Pedal Edema (1+). No: Armida's Sign Skin: Warm, Dry, Intact Neurological: No New Focal Deficit Psy/Mental Status: Alert, Normal Affect, Normal Mood - Problem List & Annotations (1) Vaginal delivery SNOMED Code(s): 516326115 Code(s): O80 - ENCOUNTER FOR FULL-TERM UNCOMPLICATED DELIVERY Status: Acute Current Visit: Yes (2) Preeclampsia SNOMED Code(s): 630713008 Code(s): O14.90 - UNSPECIFIED PRE-ECLAMPSIA, UNSPECIFIED TRIMESTER Status: Acute Current Visit: Yes - Problem List Review Problem List Initiated/Reviewed/Updated: Yes - My Orders Last 24 Hours: My Active Orders 02/19/21 09:00 Potassium Chloride [Klor-Con M20] 40 meq PO BID 02/20/21 09:00 Labetalol [Normodyne] 200 mg PO BID - Assessment Assessment:: 30yo P2012 s/p PPD 3 , RH positive , Rubella Immune preeclampsia - Plan Plan:: Potassium is improving on oral regimen. Blood pressures more mild range on l abetalol, but not consistently normal range. Will increase labetalol to 200 mg bid. Patient has a BP cuff at home and can monitor. She denies headaches or visual changes. She feels well. Will await baby's bilirubin level today and monitor Linsey with the increased dose of labetalol. If responds to the increased dose, will plan discharge later today. Discharge instructions reviewed. Will monitor BP at home and call if >150/100 on labetalol. Will plan short interval follow up at [facility]. Patient agrees to plan of care. Will follow up potassium with lab later this week, continue oral supplementation.
[2021-02-20] MEDS: Potassium Chloride 20 MEQ Tab.ER PO SCH ×2 (09:07→21:05)
[2021-02-20] MEDS: Escitalopram 10 MG Tab PO SCH (09:09)
[2021-02-20] MEDS: Labetalol 100 MG Tab PO SCH ×2 (09:10→21:06)
[2021-02-20] MEDS: Docusate Sodium 100 MG Cap PO PRN (09:12)
[2021-02-20] MEDS ORDERED: hydrALAZINE 10 MG Tab PO STA ×2 (15:06→17:44)
--- NOTE | 2021-02-20 19:16 | PCM.SN.2 ---
- Free Text/Narrative Note: Patient is tearful and frustrated by her blood pressures. They became severe range again this afternoon. She still denies headache or visual changes. She is not hyperreflexic and has no clonus. She has trace to +1 pedal edema with good urine output. Added hydralazine 10 mg and now added 15 mg last hour. After discussion about needing to monitor her and make medication adjustments so can safely send her home, she is more calm. She understands cannot send her home with severe range blood pressures. Questions answered. Monitor this evening after dosing with hydralazine and currently taking labetalol 200 mg bid. Time Documentation
[2021-02-21 06:47] LABS: BLOOD UREA NITROGEN,BUN 4 mg/dL (7.0-18.0); CARBON DIOXIDE,CO2 26.7 mmol/L (21.0-32.0); CHLORIDE,CL 108 mmol/L (98-107); GLUCOSE RANDOM 72 mg/dL (74-106); POTASSIUM,K 3.2 mmol/L (3.5-5.1); SODIUM,NA 144 mmol/L (136-145)
--- NOTE | 2021-02-21 07:18 | PCM.PNPP ---
- General Info Date of Service: 02/21/21 Functional Status: Reports: Pain Controlled, Tolerating Diet, Ambulating, Urinating - Review of Systems General: Denies: Fever, Weakness Pulmonary: Denies: Shortness of Breath Cardiovascular: Denies: Chest Pain, Palpitations, Lightheadedness Gastrointestinal: Denies: Abdominal Pain, Nausea, Vomiting Genitourinary: Denies: Flank Pain Musculoskeletal: Reports: No Symptoms Skin: Reports: No Symptoms Neurological: Reports: No Symptoms Psychiatric: Reports: No Symptoms - General Info Date of Service: 02/21/21 - Patient Data Vital Signs - Most Recent: Last Vital Signs Temp 36.4 C 02/21/21 04:00 Pulse 80 02/21/21 04:00 Resp 17 02/20/21 20:34 BP 151/86 H 02/21/21 04:00 Pulse Ox 96 02/21/21 04:00 Weight - Most Recent: 92.442 kg Lab Results - Last 24 Hours: Laboratory Results - last 24 hr 02/20/21 02/21/21 Range/Units 06:52 05:35 Sodium 144 144 (136-145) mmol/L Potassium 2.8 L 3.2 L (3.5-5.1) mmol/L Chloride 107 108 H (98-107) mmol/L Carbon Dioxide 26.7 26.7 (21.0-32.0) mmol/L BUN 6 L 4 L (7.0-18.0) mg/dL Creatinine 0.6 0.5 L (0.6-1.0) mg/dL Est Cr Clr Drug Dosing 116.75 140.10 mL/min Estimated GFR (MDRD) > 60.0 > 60.0 ml/min Glucose 77 72 L (74-106) mg/dL Calcium 7.7 L 8.1 L (8.5-10.1) mg/dL Med Orders - Current: Current Medications Acetaminophen (Acetaminophen 500 Mg Tab) 500 mg PO Q4H PRN PRN Reason: Pain (mild 1-3) Acetaminophen (Acetaminophen 500 Mg Tab) 1,000 mg PO Q4H PRN PRN Reason: Pain (mild 1-3) Last Admin: 02/19/21 07:53 Dose: 1,000 mg Documented by: Benzocaine/Menthol (Benzocaine/Menthol 20%-0.5% [place] 78 Gm Cannister) 78 gm TOP ASDIRECTED PRN PRN Reason: Perineal Comfort Measure Last Admin: 02/18/21 05:02 Dose: 1 can Documented by: Bisacodyl (Bisacodyl 10 Mg Supp) 10 mg RECTAL ONETIME PRN PRN Reason: Constipation Butorphanol Tartrate (Butorphanol 1 Mg/Ml Sdv) 1 mg IVPUSH Q1H PRN PRN Reason: Pain (severe 7-10) Last Admin: 02/17/21 18:12 Dose: 1 mg Documented by: Carboprost Tromethamine (Carboprost Tromethamine 250 Mcg/1 Ml Amp) 250 mcg IM ASDIRECTED PRN PRN Reason: Post Hemorrhage Docusate Sodium (Docusate Sodium 100 Mg Cap) 100 mg PO Q12H PRN PRN Reason: Constipation Last Admin: 02/20/21 09:12 Dose: 100 mg Documented by: Emollient Ointment (Lanolin 100% Cream 7 Gm Tube) 0 gm TOP ASDIRECTED PRN PRN Reason: Sore Nipples Ephedrine Sulfate (Ephedrine 50 Mg/Ml Sdv) 10 mg IVPUSH Q5M PRN PRN Reason: Hypotension Escitalopram Oxalate (Escitalopram 10 Mg Tab) 20 mg PO DAILY SHARRON Last Admin: 02/20/21 09:09 Dose: 20 mg Documented by: Oxytocin/Sodium Chloride (Oxytocin 30 Unit In Ns 0.9% 500 Ml Premix) 30 unit in 500 mls @ 999 mls/hr IV TITRATE SHARRON Tranexamic Acid 1,000 mg/ (Sodium Chloride) 110 mls @ 660 mls/hr IV ONETIME PRN PRN Reason: Bleeding Oxytocin/Sodium Chloride (Oxytocin 30 Unit In Ns 0.9% 500 Ml Premix) 30 unit in 500 mls @ 2 mls/hr IV TITRATE SHARRON; Protocol Last Titration: 02/17/21 23:58 Dose: 500 munits/min, 500 mls/hr Documented by: Lactated Ringer's (Ringers, Lactated) 1,000 mls @ 150 mls/hr IV ASDIRECTED SHARRON Last Admin: 02/17/21 22:09 Dose: 150 mls/hr Documented by: Potassium Cl/Dextrose/Lact Ringer's (D5 Lr With 20 Meq Kcl) 1,000 mls @ 125 mls/hr IV ASDIRECTED SHARRON Last Admin: 02/18/21 23:04 Dose: 125 mls/hr Documented by: Ibuprofen (Ibuprofen 400 Mg Tab) 400 mg PO Q4H PRN PRN Reason: Pain (mild 1-3) Ibuprofen (Ibuprofen 800 Mg Tab) 800 mg PO Q6H PRN PRN Reason: Cramping Last Admin: 02/20/21 08:03 Dose: 800 mg Documented by: Labetalol HCl (Labetalol 100 Mg Tab) 200 mg PO BID [facility] Last Admin: 02/20/21 21:06 Dose: 200 mg Documented by: Lidocaine HCl (Lidocaine 1% 50 Ml Mdv) 50 ml INJECT ONETIME PRN PRN Reason: Laceration repair Methylergonovine Maleate (Methylergonovine 0.2 Mg/1 Ml Amp) 0.2 mg IM ASDIRECTED PRN PRN Reason: Post Hemorrhage Misoprostol (Misoprostol 200 Mcg Tab) 200 mcg PO ONETIME PRN PRN Reason: Post Hemorrhage Nalbuphine HCl (Nalbuphine 10 Mg/1 Ml Vial) 10 mg IVPUSH Q1H PRN PRN Reason: Pain (severe 7-10) Ondansetron HCl (Ondansetron 4 Mg/2 Ml Sdv) 4 mg IVPUSH Q4H PRN PRN Reason: Nausea/Vomiting Last Admin: 02/17/21 22:04 Dose: 4 mg Documented by: Oxycodone HCl (Oxycodone 5 Mg Tab) 5 mg PO Q2H PRN PRN Reason: Pain (severe 7-10) Potassium Chloride (Potassium Chloride 20 Meq Tab.Er) 40 meq PO BID [facility] Last Admin: 02/20/21 21:05 Dose: 40 meq Documented by: Sodium Chloride (Sodium Chloride 0.9% 10 Ml Syringe) 10 ml FLUSH ASDIRECTED PRN PRN Reason: Keep Vein Open Sodium Chloride (Sodium Chloride 0.9% 2.5 Ml Syringe) 2.5 ml FLUSH ASDIRECTED PRN PRN Reason: Keep Vein Open Sodium Chloride (Sodium Chloride 0.9% 10 Ml Sdv) 10 ml IV ASDIRECTED PRN PRN Reason: IV Use Sterile Water (Water For Irrigation,Sterile 1,000 Ml Container) 1,000 ml IRR ASDIRECTED PRN PRN Reason: delivery Witch Dennise (Witch Dennise Medicated Pads 40/Jar) 1 pad TOP ASDIRECTED PRN PRN Reason: comfort care Last Admin: 02/18/21 05:03 Dose: 1 tub Documented by: Discontinued Medications Bupivacaine HCl (Bupivacaine 0.25% 30 Ml Sdv) Confirm Administered Dose 30 ml .ROUTE .STK-MED ONE Stop: 02/17/21 21:21 Last Admin: 02/18/21 03:37 Dose: Not Given Documented by: Hydralazine HCl (Hydralazine 10 Mg Tab) 10 mg PO Q8H STA Stop: 02/20/21 15:07 Last Admin: 02/20/21 15:16 Dose: 10 mg Documented by: Hydralazine HCl (Hydralazine 10 Mg Tab) 15 mg PO Q8H STA Stop: 02/20/21 17:45 Last Admin: 02/20/21 17:59 Dose: 15 mg Documented by: Ropivacaine (Naropin 0.2%) Confirm Administered Dose 200 mls @ as directed .ROUTE .STK-MED ONE Stop: 02/17/21 21:20 Last Admin: 02/18/21 03:37 Dose: Not Given Documented by: Labetalol HCl (Labetalol 100 Mg Tab) 100 mg PO BID [facility] Last Admin: 02/19/21 21:23 Dose: 100 mg Documented by: Potassium Bicarbonate (Potassium Bicarbonate 25 Meq Tab.Eff) 25 meq PO DAILY [facility] Last Admin: 02/20/21 08:13 Dose: Not Given Documented by: Terbutaline Sulfate (Terbutaline 1 Mg/Ml Sdv) 0.25 mg SUBCUT ASDIRECTED PRN PRN Reason: Tacysystole - Infant Interaction Disposition, : in Room with Family Support Person: - Recovery Exam Fundal Tone: Firm Fundal Level: 2 Fingerbreadths Above Umbilicus Fundal Placement: Midline Lochia Amount: Scant Lochia Color: Rubra/Red Perineum Description: Intact, Minimal Bruising/Swelling Other Perinuem Description: bilateral labial laceration repaired Episiotomy/Laceration: Approximated Bladder Status: Nonpalpable Urinary Elimination: Voided - Exam General: Alert, Oriented Lungs: Normal Respiratory Effort Cardiovascular: Regular Rate, Regular Rhythm GI/Abdominal Exam: Normal Bowel Sounds, Soft Extremities: Pedal Edema (trace). No: Armida's Sign Skin: Warm, Dry, Intact Neurological: No New Focal Deficit Psy/Mental Status: Alert, Normal Affect, Normal Mood - Problem List & Annotations (1) Vaginal delivery SNOMED Code(s): 625139997 Code(s): O80 - ENCOUNTER FOR FULL-TERM UNCOMPLICATED DELIVERY Status: Acute Current Visit: Yes (2) Preeclampsia SNOMED Code(s): 844936431 Code(s): O14.90 - UNSPECIFIED PRE-ECLAMPSIA, UNSPECIFIED TRIMESTER Status: Acute Current Visit: Yes - Problem List Review Problem List Initiated/Reviewed/Updated: Yes - My Orders Last 24 Hours: My Active Orders 02/20/21 09:00 Labetalol [Normodyne] 200 mg PO BID 02/21/21 07:14 Ready for Discharge [RC] PER UNIT ROUTINE - Assessment Assessment:: 30yo P2012 s/p PPD 4 , RH positive , Rubella Immune preeclampsia - Plan Plan:: Patient rested last night. BPs in 140/80-90s. She denies any headaches or visual changes. Not hyperreflexic. Will allow discharge to home on labetalol 200 mg bid and hydralazine as needed for BPs >140/90. She will be seen in clinic this week for BP check. Otherwise she is to rest and stay hydrated. Discharge instructions reviewed. Patient is agreeable to plan of care.
[2021-02-21] MEDS: Ibuprofen 800 MG Tab PO PRN (08:03)
[2021-02-21] MEDS: Potassium Chloride 20 MEQ Tab.ER PO SCH (08:22)
[2021-02-21] MEDS: Labetalol 100 MG Tab PO SCH (08:22)
[2021-02-21] MEDS: Escitalopram 10 MG Tab PO SCH (08:23)
--- NOTE | 2021-02-22 14:34 | PCM48HPAN ---
Post Anesthesia Note - EVALUATION WITHIN 48HRS OF ANESTHETIC Vital Signs in Normal Range: Yes Patient Participated in Evaluation: Yes Respiratory Function Stable: Yes Airway Patent: Yes Cardiovascular Function Stable: Yes Hydration Status Stable: Yes Pain Control Satisfactory: Yes Nausea and Vomiting Control Satisfactory: Yes Mental Status Recovered: Yes Vital Signs: Last Vital Signs Temp 97.5 F 02/21/21 04:00 Pulse 80 02/21/21 08:22 Resp 17 02/20/21 20:34 BP 151/86 H 02/21/21 08:22 Pulse Ox 96 02/21/21 04:00
== END 2021-02-21 09:40 | disposition home or self-care (01) | DRG 560 ==
LOC: MW.OBCHECK 14:08 → MW.OB 15:12 → OBSVTOIN 23:57 → MW.OB 23:57
PROVIDERS: ADMIT Obstetrics & Gynecology; ATTEND Obstetrics & Gynecology
PROC: 10E0XZZ Delivery of Products of Conception, External Approach (ICD-10-PCS; principal; 2021-02-17)
PROC: 3E0R3BZ Introduction of Anesthetic Agent into Spinal Canal, Percutaneous Approach (ICD-10-PCS; 2021-02-17)
PROC: 10907ZC Drainage of Amniotic Fluid, Therapeutic from Products of Conception, Via Natural or Artificial Opening (ICD-10-PCS; 2021-02-17)
PROC: 3E033VJ Introduction of Other Hormone into Peripheral Vein, Percutaneous Approach (ICD-10-PCS; 2021-02-17)
PROC: 0HQ9XZZ Repair Perineum Skin, External Approach (ICD-10-PCS; 2021-02-17)
PROC: 10H07YZ Insertion of Other Device into Products of Conception, Via Natural or Artificial Opening (ICD-10-PCS; 2021-02-17)
DX: O70.0 First degree perineal laceration during delivery (principal); Z3A.38 38 weeks gestation of pregnancy; Z37.0 Single live birth; O14.95 Unspecified pre-eclampsia, complicating the puerperium
CPT/HCPCS: 01967; 36415; 51702; 59025; 59409; 80048; 80053; 82570; 82803; 84132; 84156; 85014; 85018; 85027; 86592; 86850; 86900; 86901; A9270-GY; J0595; J2405; J2590; J2795; J3480; J3490; J7120